=== PATIENT | female | born 1980 | race Caucasian/White ===

== ENCOUNTER 2019-12-22 17:41 | Emergency (ER) | payer BC, SELFPAY ==
[2019-12-22 17:48] VITALS: BP 159/93; PULSE 106; RESP 15; TEMP 36.6; O2SAT 99
--- NOTE | 2019-12-22 18:00 | DI.CT_ITS ---
EXAM: CT ABDOMEN PELVIS WO CLINICAL HISTORY: Flank pain, left. TECHNIQUE: Imaging Protocol: Axial computed tomography images with coronal and sagittal reformatted images were created and reviewed. Noncontrast COMPARISON: No exams were available for comparison FINDINGS: ABDOMEN: Lung Bases: Normal where visualized. Liver: Normal density. No measurable mass. Gallbladder and biliary tract: No radiodense calculus or dilation. Pancreas: Normal density, no abnormal calcifications or inflammatory process. Spleen: Normal. Kidneys: Normal size, contour and axis. No radiodense stones or obstructive uropathy. No masses seen. Adrenal glands: No masses seen. Lymph nodes: Within normal limits. Abdominal Aorta: Abdominal portion non-dilated. There is calcification in the iliac and femoral arter ies as well as splenic artery. PELVIS: Bladder: The bladder is moderately distended. No wall thickening, mass or stone.. Bowel: There is a large quantity of stool seen in the right side of the colon. The more distal porti ons of the colon are decompressed. There are fecalized loops of distal ileum. No obstruction or bow el wall thickening. Peritoneal cavity: Trace free fluid in the lower pelvis.. No free air. Reproductive organs: Within normal limits. Bones: Mild degenerative disc changes. IMPRESSION: Increased quantity of stool in the right side of the colon. No evidence of urinary tract calculi or hydronephrosis.. RADIATION DOSE DELIVERED: Total DLP DATA REPOSITORY: All CT scans at this facility are submitted to the National Radiology Data Registry (NRDR) Dose Index Registry (DIR) with the [employer] ([employer]). RADIATION OPTIMIZATION: All CT scans at this facility use at least one of these dose optimization te chniques: automated exposure control; mA and/or kV adjustment per patient size (includes targeted exa ms where dose is matched to clinical indication); or iterative reconstruction.
[2019-12-22 18:10] LABS: Bilirubin Negative (Negative); Blood Negative (Negative); Clarity Clear (Clear); Glucose Negative (Negative); Ketones Trace mg/dL (Negative); Leukocyte Esterase Negative (Negative); Nitrite Negative (Negative); Specific Gravity <= 1.005 (1.005-1.025); Urobilinogen 0.2 EU/dL (Up TO 0.2); pH 6.5 (5-8)
[2019-12-22 18:34] LABS: Abs Immature Grans 0.01 k/cumm (0.0-0.09); Absolute Basophil Count 0.01 k/cumm (0.0-0.2); Absolute Eosinophil Count 0.05 k/cumm (0.0-0.7); Absolute Lymphocyte Count 1.66 k/cumm (1.2-3.4); Absolute Monocyte Count 0.52 k/cumm (0.11-0.7); Absolute Neutrophil Count 4.09 k/cumm (1.2-6.7); Basophils % 0.2; Eosinophils % 0.8; HCT 37.7 % (36.0-46.0); HGB 13.3 g/dL (12.0-15.5); Immature Grans % 0.2 %; Lymphocytes % 26.2; Mean Corp. HGB Concentration 35.3 g/dL (32.0-36.0); Mean Corpuscular Hemoglobin 33.8 pg (27.0-33.0); Mean Corpuscular Volume 95.7 fL (80-95); Monocytes % 8.2; Neutrophils % 64.4; Platelet Count 289 x1000/uL (130-400); RBC 3.94 m/cumm (4.00-5.20); White Blood Cell Count 6.34 k/cumm (4.4-10.8)
[2019-12-22] MEDS: Normal Saline 1,000 ML 1000 ML IV (18:49)
[2019-12-22 18:51] LABS: ALT 54 U/L (14-59); AST 39 U/L (15-37); Albumin 4.4 g/dL (3.4-5.0); Alkaline Phosphatase 68 U/L (46-116); BUN 5 mg/dL (7-18); Calcium 8.9 mg/dL (8.5-10.1); Chloride 92 mmol/L (98-107); Glucose 105 mg/dL (74-106); Lipase 80 U/L (73-393); Potassium 3.3 mmol/L (3.5-5.1); Sodium 128 mmol/L (136-145); Total Protein 7.7 g/dL (6.4-8.2)
--- NOTE | 2019-12-22 18:56 | DI.VRAD_ITS ---
PROCEDURE INFORMATION: Exam: CT Abdomen And Pelvis Without Contrast Exam date and time: 12/22/2019 18:12 Age: 38 years old Clinical indication: Other: Left flank pain, frequent urination TECHNIQUE: Imaging protocol: Computed tomography of the abdomen and pelvis without contrast. COMPARISON: No relevant prior studies available. FINDINGS: Liver: No hepatic masses on noncontrast imaging. Small hepatic calcifications compatible with benign granulomata. Gallbladder and bile ducts: No calcified stones. No ductal dilation. Pancreas: No ductal dilation. No masses. Spleen: No splenomegaly or focal lesions. Adrenals: No mass. Kidneys and ureters: No nephrolithiasis or collecting system obstruction. Stomach and bowel: No obstruction. No mucosal thickening. Appendix: No evidence of appendicitis. Intraperitoneal space: Small cul-de-sac free fluid within physiologic limits. Vasculature: Atherosclerosis. No aortic aneurysm. Lymph nodes: No significantly enlarged lymph nodes. Bladder: The urinary bladder is distended. No significant wall thickening in the urinary bladder. Reproductive: Unremarkable as visualized. Bones/joints: Unremarkable. No acute fracture. Soft tissues: No suspcious lesions. IMPRESSION: 1. No acute findings. 2. No nephrolithiasis or collecting system obstruction. 3. Distended urinary bladder without evidence of cystitis. Dictated and Authenticated by: Zonia Soriano MD. Ordering:EMILY Wick MD
--- NOTE | 2019-12-22 19:03 | NUR.NOTE ---
Pt reports several days of left flank pain, described as burning. Pain in pelvis before urinating. Denies fevers, N/V. No known injury to back. Took aleve this am. NS infusing through #20 LFA.
--- NOTE | 2019-12-22 19:11 | W.ED.GENAD ---
Discharge Plan Disposition Patient Disposition: HOME Condition: Stable Discharge Details Chief Complaint: FlankPain Clinical Impression: Gastritis, Back pain Primary Care Provider: None,None ED Provider: Shamika Young Home Meds and New Rx's Prescriptions: New pantoprazole [Protonix] 40 mg tablet,delayed release (DR/EC) 40 mg PO DAILY Qty: 7 RF: 0 sucralfate [Carafate] 1 gram tablet 1 gm PO BID Qty: 28 RF: 0 Discontinued Prilosec OTC 20 mg Tablet,Delayed Release (Dr/Ec) 20 mg PO DAILY RF: 0 No Action Tresiba U-100 Insulin 100 unit/mL Solution 30 unit SUBCUT DAILY RF: 0 insulin aspart U-100 [Novolog U-100 Insulin aspart] 100 unit/mL Solution See Rx Instructions .ROUTE .COMPLEX RF: 0 Discharge Instructions Instructions: Gastritis (ED), Back Pain (ED) Additional Instructions: Hold Prilosec for 1 week while taking Protonix. If significantly improved symptoms while taking Protonix talk to PCP regarding a long-term prescription. Use Carafate up to 4 times a day as discussed for symptomatic relief. Urine culture pending. CT reassuring as discussed. Increase salty foods for the next few days due to low sodium as discussed. Recheck sodium with your primary care doctor in follow-up. Return to the emergency room for any worsening, concerns or alarming symptoms sooner if needed Discharge Data Discharge Date/Time-TO BE ENTERED AT DEPARTURE: 12/22/19 20:40 Medical Decision Making This is a 38-year-old patient presenting to the emergency room for complaints of left flank pain. Patient ports left flank pain which began 4 days ago has been worsening since. Is described as constant although occasionally has a spastic component. Patient denies fever or chills associated. Patient is diabetic and reports blood sugars have been approximately 190 the last few days. Patient denies abdominal pain, nausea or vomiting. Patient does report mild suprapubic pressure prior to urination. Patient is urinating without difficulty and frequently. Patient denies hematuria or dysuria associated. Patient denies chest pain, difficulty breathing shortness of breath or wheezing. No recent upper respiratory symptoms. Patient does report 2 months ago she was diagnosed with reflux after experiencing substernal and epigastric chest discomfort. Patient was treated with Prilosec for the last few months and a course of antibiotics. Patient reports that she does still have occasional episodes of reflux. Does report eating and drink without difficulty. Patient does report decrease in bowel movements in the last few days that she has been pushing fluids predominantly. History of UTI several years ago this was not typical of her presentation. No history of kidney stone. Denies any injury or trauma prior to onset of pain in the last 4 days. Patient appears nontoxic. Patient's vital signs reviewed. Patient has clear breath sounds, easy and unlabored breathing. No significant CVA tenderness although patient reports she is aware of palpating the left flank. Patient has benign abdominal exam. No rebound, peritoneal signs. Patient does appear well-hydrated. Plan to check urinalysis as well as CT of patient's flank given her complaints of constant worsening pain over the last 4 days for concern of kidney stone or hydro-. Although patient appears nontoxic will check urinalysis and baseline labs. Patient agrees this plan of care. Will provide normal saline 1 L of fluid. Patient's labs reveal no leukocytosis. Patient does have very mild hypo-neutropenia. Patient has been mild decrease in potassium at 3.3. Kidney function normal. No significant LFT abnormalities. Bilirubin normal. Lipase normal. Patient's urinalysis unremarkable for identified infection this evening. We will plan to check urine culture. Patient CT scan reveals no acute findings. No nephrolithiasis or collecting system obstruction. Mild distention of urinary bladder without evidence of cystitis which I attribute to patient's hydration over the last 2 days in addition to the IV fluid received in the emergency room. Patient is urinating without difficulty. Incidental note of a small hepatic calcification compatible with benign granulomata. This was discussed with the patient. Patient had mild persistent pain, trial of GI cocktail was relieving of her back pain. Possibly her pain is related to gastritis and recent reflux diagnosis. After discussion with the patient will plan to hold her omeprazole for 1 week and replaced with Protonix as well as Carafate. Will place patient on care worker list for follow-up with PCP locally. Patient agrees with this plan of care. Discussed hyponatremia. Patient did receive normal saline. We did discuss repeating BMP however patient declines and would prefer to increase salt in her diet and have follow-up with local PCP for repeat lab testing. Possibly patient's hyponatremia is related to her diabetic medications or diet. Patient reports her understanding. At this time we will plan to discharge this patient. She is feeling improved. She agrees with this plan of care. Patient's vital signs repeated and improved. The patient was stable and requested discharge. Prior to discharge, my usual and customary return precautions were reviewed with the patient - this included follow-up instructions and reasons to return to the Emergency Department if conditions worsens, does not improve as expected, or other new concerns arise. HPI General Date/Time Provider Initiated Documentation: 12/22/19 17:53. HPI Narrative: This is a 38-year-old patient presenting to the emergency room for onset of 4 days of flank pain. Patient reports left-sided flank pain described as a burning. Patient reports pain is constant. Patient reports pain is somewhat improved when standing. Patient reports occasional pulsatile spastic type characteristic of the pain. Denies injury or trauma. Reports the pain is 5 out of 10 at this time. Patient reports pain does seem as if it is been worsening over the last 4 days. Patient reports lower abdominal pressure. Urgency and frequency of urination. Patient did increase her fluid intake in attempts to flush kidneys. Patient denies dysuria or hematuria. Patient denies fevers or chills. Patient does report 2 months ago she was diagnosed with reflux due to epigastric and substernal discomfort. Patient has been taking omeprazole. Patient did report an episode of reflux or yesterday despite using her omeprazole. Patient denies dizziness or headache. Denies any cough, difficulty breathing or shortness of breath or wheezing. Patient reports no substantial bowel movements in the last few days as she has been pushing mostly fluid. Denies abdominal pain. No other concerns complaints. Patient is a type I diabetic, blood sugars have been approximately 190 in the mornings. Related Data Home Medications Medication Instructions Recorded Confirmed insulin aspart U-100 [Novolog See Rx Instructions .ROUTE .COMPLEX 12/22/19 12/22/19 U-100 Insulin aspart] insulin degludec [Tresiba U-100 30 unit SUBCUT DAILY 12/22/19 12/22/19 Insulin] pantoprazole [Protonix] 40 mg PO DAILY #7 tab 12/22/19 sucralfate [Carafate] 1 gm PO BID #28 tab 12/22/19 Previous Rx's Medication Instructions Recorded pantoprazole [Protonix] 40 mg PO DAILY #7 tab 12/22/19 sucralfate [Carafate] 1 gm PO BID #28 tab 12/22/19 Allergies Allergy/AdvReac Type Severity Reaction Status Date / Time amoxicillin Allergy Unverified 12/22/19 17:54 General Stated Complaint: FlankPain SHELLEY: 3 Review of Systems All systems reviewed & are unremarkable except as noted in HPI and below Constitutional Constitutional: Denies chills, Denies fatigue, Denies fever(s), Denies headache(s) and Denies malaise ENT Ears, Nose, Mouth, and Throat: Denies headache(s) Cardiovascular Cardiovascular: Denies chest pain, Denies leg edema, Denies lightheadedness, Denies radiating jaw, neck or arm pain and Denies dyspnea Respiratory Respiratory: Denies cough, Denies dyspnea and Denies wheezing Gastrointestinal Gastrointestinal: Denies abdominal pain, Reports bloating, Reports heartburn, Denies diarrhea, Denies nausea and Denies vomiting Genitourinary Genitourinary: Denies abnormal vaginal bleeding, Denies hematuria, Denies difficulty voiding, Denies dysuria and Reports urinary urgency Musculoskeletal Musculoskeletal: Reports back pain Neurologic Neurologic: Denies headache(s) Endocrine Endocrine: Denies fatigue Allergic/Immunologic Allergic/Immunologic: Denies wheezing [facility] Social History Smoking/Tobacco Use Status: Former Tobacco Use Alcohol Intake: current Alcohol Intake frequency: holidays/special occasions only Substance use type: does not use Do you feel safe at home: Yes Do you feel safe in your relationship?: Yes Exam Narrative Exam Narrative: CONST: Healthy appearing patient, in no acute distress. Well hydrated. Alert and oriented. EYES: General normal appearance. Alignment normal. Eyelids normal. Conjunctiva normal. Sclera normal. PERRL. NECK: Normal visual inspection. FROM. No lymphadenopathy. Trachea midline. No Midline tenderness. CHEST: Normal insepection of the chest. RESP: Normal respiratory effort. Speaking full sentences. No cough. No wheezing. No retractions. Clear to auscaltation. Breath sound equal and present bilaterally. CARDIO: No JVD. Normal PMI. Regular Rate. Regular Rhythm. Normal peripheral pulses. GI: Normal inspection of abdomen. No distension. Soft. Nontender. Bowel sounds present in all 4 quadrants. No rebound. No gaurding. MUSCULOSKELETAL: Normal Gait. FROM of all extremities. Distal neurovascularly intact. Sensation intact distally. Back: No CVA tenderness noted bilaterally SKIN: Normal. Dry. No rashes. NEURO: Alert and awake. Speech clear. PSYCH: Normal affect. Cooperative. Course Vital Signs Vital signs: Vital Signs Temperature 36.6 C 12/22/19 17:48 Pulse 106 H 12/22/19 17:48 Respiratory Rate 15 12/22/19 17:48 Blood Pressure 159/93 H 12/22/19 17:48 Pulse Oximetry 99 12/22/19 17:48 Temperature 36.6 C 12/22/19 17:48 Temperature Source Tympanic 12/22/19 17:48 Pulse 106 H 12/22/19 17:48 Respiratory Rate 15 12/22/19 17:48 Respiratory Effort Non-Labored 12/22/19 17:53 Blood Pressure 159/93 H 12/22/19 17:48 Blood Pressure Position Sitting 12/22/19 17:48 Pulse Oximetry 99 12/22/19 17:48 Oxygen Delivery Method Room Air 12/22/19 17:48 Oxygen Flow Rate 0 12/22/19 17:48 Pain Level 6 12/22/19 19:03 Lab/Test Results Lab/Test Results: 12/22/19 17:49 Urine - Voided Urine Culture - Pending Laboratory Tests Range/Units 12/22/19 12/22/19 12/22/19 17:49 18:25 18:25 WBC (4.4-10.8) k/cumm 6.34 RBC (4.00-5.20) m/cumm 3.94 L Hgb (12.0-15.5) g/dL 13.3 Hct (36.0-46.0) % 37.7 MCV (80-95) fL 95.7 H MCH (27.0-33.0) pg 33.8 H MCHC (32.0-36.0) g/dL 35.3 RDW (11.7-14.6) % 11.0 L Plt Count (130-400) x1000/uL 289 MPV (8.0-11.0) fL 10.0 Immature Gran % % 0.2 Neutrophils % 64.4 Lymphocytes % 26.2 Monocytes % 8.2 Eosinophils % 0.8 Basophils % 0.2 Absolute Neutrophils (1.2-6.7) k/cumm 4.09 Absolute Lymphocytes (1.2-3.4) k/cumm 1.66 Absolute Monocytes (0.11-0.7) k/cumm 0.52 Absolute Eosinophils (0.0-0.7) k/cumm 0.05 Absolute Basophils (0.0-0.2) k/cumm 0.01 Sodium (136-145) mmol/L 128 L Potassium (3.5-5.1) mmol/L 3.3 L Chloride (98-107) mmol/L 92 L Carbon Dioxide (21.0-32.0) mmol/L 24.0 Anion Gap (3-11) mmol/L 12.0 H BUN (7-18) mg/dL 5 L Creatinine (0.55-1.02) mg/dL 0.80 Estimated GFR/1.73 m2 (mL/min/1.73m2) >= 60.00 Glucose (74-106) mg/dL 105 Calcium (8.5-10.1) mg/dL 8.9 Total Bilirubin (0.2-1.0) mg/dL 1.0 AST (15-37) U/L 39 H ALT (14-59) U/L 54 Alkaline Phosphatase (46-116) U/L 68 Total Protein (6.4-8.2) g/dL 7.7 Albumin (3.4-5.0) g/dL 4.4 Lipase (73-393) U/L 80 Urine Color (Yellow) Straw Urine Clarity (Clear) Clear Urine pH (5-8) 6.5 Ur Specific [place] (1.005-1.025) <= 1.005 Urine Protein (Negative) mg/dL Negative Urine Ketones (Negative) mg/dL Trace H Urine Blood (Negative) Negative Urine Nitrite (Negative) Negative Urine Bilirubin (Negative) Negative Urine Urobilinogen (Up TO 0.2) EU/dL 0.2 Ur Leukocyte Esterase (Negative) Negative Urine Glucose (Negative) mg/dL Negative POC- Test(urine) Negative
--- NOTE | 2019-12-22 20:13 | NUR.NOTE ---
Nursing Note:COPY SENT TO [id number] FOR EST PCP
[2019-12-22 20:28] VITALS: BP 149/87; PULSE 87; RESP 16; TEMP 37; O2SAT 99
--- NOTE | 2019-12-23 10:29 | CMACTNOTE_ITS ---
- If Service Date Differs Date of service: 12/23/19 Time of Service: 10:29 Care Management Activity Note At the request of ED provider, CM coordinates referral to [facility], teledoc, to establish care with a PCP.
== END 2019-12-22 20:40 | disposition home or self-care (01) ==
PROVIDERS: Emergency Provider Physician Assistant
DX: K29.00 Acute gastritis without bleeding (principal); M54.5 Low back pain; K21.9 Gastro-esophageal reflux disease without esophagitis; E10.9 Type 1 diabetes mellitus without complications; E87.1 Hypo-osmolality and hyponatremia
CPT/HCPCS: 36415; 36416; 80053; 81025; 82962; 83690; 96360; 96361; 99284; 74176; 81003; 85025; 87086

== ENCOUNTER 2020-07-02 15:35 | Emergency (ER) | payer BC, SELFPAY ==
[2020-07-02] VITALS (36 sets, daily range): BP systolic 113–156; BP diastolic 74–98; PULSE 78–105; RESP 12–27; TEMP 36.7; O2SAT 98–100
--- NOTE | 2020-07-02 15:30 | RT.EKG_ITS ---
APPROVED REPORT Exam: Resting ECG Patient Location: E HR:90 bpm ECG Measurements Heart Rate 90 AXIS ID 129 P 42 QRSd 77 QRS 24 QT 356 T 33 QTc 436 Conclusion Sinus rhythm...normal P axis, V-rate 60- 99 Physician: Rate 90, intervals normal, sinus rhythm, no significant ST elevations or depressions, no e vidence of dysrhythmia, no evidence of delta wave, epsilon wave, Brugada syndrome, or other significa nt abnormality. No signs of right heart strain.
--- NOTE | 2020-07-02 15:45 | DI.RAD_ITS ---
EXAM: XR PORTABLE CHEST AP CLINICAL HISTORY: central chest pain TECHNIQUE: 2D digital imaging was performed. COMPARISON: No exams were available for comparison FINDINGS: MEDIASTINUM: Normal. HEART: Normal. PULMONARY VASCULATURE: Normal. LUNGS: Clear. PLEURAL SPACE: No pleural effusion or pneumothorax. BONE:Within normal limits for the patient's age. OTHER FINDINGS:Normal. IMPRESSION: No acute pulmonary findings. DATA REPOSITORY: RADIATION DOSE DELIVERED:
--- NOTE | 2020-07-02 15:51 | W.ED.GENAD ---
Discharge Plan Disposition Patient Disposition: HOME Condition: Good Discharge Details Clinical Impression: Heart palpitations, Chest heaviness, Dehydration Primary Care Provider: None,None ED Provider: Dennis Toledo Home Meds and New Rx's Prescriptions: Continued Tresiba U-100 Insulin 100 unit/mL Solution 30 unit SUBCUT DAILY RF: 0 insulin aspart U-100 [Novolog U-100 Insulin aspart] 100 unit/mL Solution See Rx Instructions .ROUTE .COMPLEX RF: 0 omeprazole magnesium [Prilosec OTC] 20 mg Tablet,Delayed Release (Dr/Ec) 20 mg PO DAILY RF: 0 Discharge Instructions Instructions: Heart Palpitations (ED) Additional Instructions: At this time your cardiac work-up is returned unremarkable and reassuring. Your labs suggest no evidence of blood clot heart attack or other significant abnormality. There may be a component of dehydration that may have caused your symptoms. Your thyroid function is normal. Please make sure to drink plenty of fluids at home. Please follow-up closely with your primary care provider for further and continued evaluation. If you notice any worsening of your symptoms, or any new symptoms such as vomiting, diarrhea, fever, chills, shortness of breath, chest pain, numbness, weakness, or fainting , please return immediately to the emergency department for reevaluation. Please follow up with your primary care provider as soon as possible for reassessment and reevaluation. As always, it was a pleasure participating in your medical care today. Referrals: Tracee Collins RN [Emergency Nurse] - Medical Decision Making 39-year-old female with a past medical history of type 1 insulin-dependent diabetes, and mild gastritis presents today for symptoms of palpitations, mild chest pain, left arm tightness, and left arm shooting pain. Patient states that she had no symptoms until she woke up this morning, patient states when she awoke this morning she felt like her heart was beating out of her chest. She states that the symptoms continued throughout the day. She was not short of breath when walking or performing activities. There does not appear to be any particular aggravating or relieving symptoms. Symptoms are unchanged by leaning forward or laying back. In addition to the palpitations and mild chest tightness she admits to left arm tightness and shooting left jaw pain. She denies any tearing or ripping sensation. She denies any pleuritic chest pain. She admits to her arm feeling slightly tingly all week ago but none of that sensation now. Denies PE risk factors such as recent long car rides, immobilization, recent surgery, prior history of DVT or PE, family history of PE or DVT, morbid obesity, exogenous estrogen and smoking, hemoptysis, history of cancer. She denies any other illicit drug use. No major prior surgeries. No history of heart disease. She has not had any caffeine the past week. Physical exam is unremarkable, no pulse deficit, vital signs aside from mild tachycardia show no signs of hypoxemia, or significant tachypnea. Neurologic exam is normal. Patient has no concerning red flags for PE, she is not on estrogen or control. Differential is broad to include atypical DKA, dehydration, PE, less likely ACS. We will gently rehydrate, get a laboratory work-up, chest x-ray, monitor closely and reassess. 8P.m. Laboratory work-up is returned, notably unremarkable, no significant electrolyte VBG no other abnormalities to speak of. proBNP is normal, troponin normal, no suggestion of heart strain. TSH normal, urinalysis negative for evidence of infection. Urine drug screen negative, influenza negative. D-dimer is normal. Symptoms inconsistent with DKA. Chest x-ray unremarkable, after 2 days of normal saline the patient is well hydrated and her heart rate is notably normalized. Patient feels well, all previous symptoms have completely resolved. Delta troponin and repeat EKG are normal, no dysrhythmia tachycardia or evidence of STEMI. Symptoms at this time are inconsistent with PE, ACS, or significant metabolic abnormality. Symptoms are inconsistent with pheochromocytoma at this time. With resolution of her symptoms, normal vital signs, and an unremarkable work-up I feel that the patient is safe for discharge clinically at this time. I have extensively reviewed the treatment plan and discharge instructions with the patient. I have addressed all patient concerns at this time. The patient was made aware of what symptoms to monitor for that would warrant a return to the emergency department. Discussed the plan with the patient, they demonstrate verbal understanding and agreement with our assessment and plan at this time. EKG 15: 51 Rate 90, intervals normal, sinus rhythm, no significant ST elevations or depressions, no evidence of dysrhythmia, no evidence of delta wave, epsilon wave, Brugada syndrome, or other significant abnormality. No signs of right heart strain. FINDINGS: Lungs: Unremarkable. No consolidation. Pleural space: Unremarkable. No pleural effusion. No pneumothorax. Heart/Mediastinum: Unremarkable. No cardiomegaly. Bones/joints: Unremarkable. IMPRESSION: No acute findings. Thank you for allowing us to participate in the care of your patient. Dictated and Authenticated by: Colin Mueller MD 07/02/2020 5:06 PM Eastern Time ([place] & [place]) HPI General Date/Time Provider Initiated Documentation: 07/02/20 15:37. HPI Narrative: 39-year-old female with a past medical history of type 1 insulin-dependent diabetes, and mild gastritis presents today for symptoms of palpitations, mild chest pain, left arm tightness, and left arm shooting pain. Patient states that she had no symptoms until she woke up this morning, patient states when she awoke this morning she felt like her heart was beating out of her chest. She states that the symptoms continued throughout the day. She was not short of breath when walking or performing activities. There does not appear to be any particular aggravating or relieving symptoms. Symptoms are unchanged by leaning forward or laying back. In addition to the palpitations and mild chest tightness she admits to left arm tightness and shooting left jaw pain. She denies any tearing or ripping sensation. She denies any pleuritic chest pain. She admits to her arm feeling slightly tingly all week ago but none of that sensation now. Denies PE risk factors such as recent long car rides, immobilization, recent surgery, prior history of DVT or PE, family history of PE or DVT, morbid obesity, exogenous estrogen and smoking, hemoptysis, history of cancer. She denies any other illicit drug use. No major prior surgeries. No history of heart disease. She has not had any caffeine the past week. Related Data Home Medications Medication Instructions Recorded Confirmed Tresiba U-100 Insulin 30 unit SUBCUT DAILY 12/22/19 07/02/20 insulin aspart U-100 [Novolog See Rx Instructions .ROUTE .COMPLEX 12/22/19 07/02/20 U-100 Insulin aspart] omeprazole magnesium [Prilosec OTC] 20 mg PO DAILY 07/02/20 07/02/20 Allergies Allergy/AdvReac Type Severity Reaction Status Date / Time amoxicillin Allergy Unverified 11/16/20 16:30 General SHELLEY: 3 Review of Systems All systems reviewed & are unremarkable except as noted in HPI and below [facility] Social History Smoking/Tobacco Use Status: Former Tobacco Use Smoking risk assessment performed?: Yes Alcohol Intake: current Alcohol Intake frequency: holidays/special occasions only Drug use: Never Substance use type: does not use Do you feel safe at home: Yes Do you feel safe in your relationship?: Yes Exam Narrative Exam Narrative: 1.Const: Well-nourished, Well-developed, appearing stated age 2.Eyes: PERRL, no conjunctival injection, and symmetrical lids. 3.ENT: Atraumatic external nose and ears. Slightly dry MM. Neck: Symmetric, trachea midline, No thyromegaly. 4.CVS: +S1/S2, No murmurs or gallops. Peripheral pulses 2+ and equal in all extremities. Brisk capillary refill in all extremities. Radial pulses +2 bilaterally. No deficits of the lower extremities 5.RESP: Unlabored respiratory effort. Clear to auscultation bilaterally. No wheezes rales or rhonchi 6.GI: Soft, Nontender/Nondistended, No hepatosplenomegaly. No guarding or rebound. 7.MSK: Normocephalic/Atraumatic, Extremities w/o deformity or ttp No cyanosis or clubbing, Normal movement of all extremities. No calf tenderness. 8.Skin: Warm, Dry. No rashes or lesions. 9.Neuro: dispensing optician apprentice II-XII grossly intact. Sensation grossly intact, no focal neurologic deficits. No deficits in sensation to the upper extremities 10.Psych: (AAO) x3. Appropriate mood and affect
[2020-07-02] MEDS: Normal Saline 1,000 ML 1000 ML IV ×2 (16:00→18:04)
[2020-07-02 16:25] LABS: BE (Venous) 0 mmol/L (-2-3); HCO3 (Venous) 26 mmol/L (23-28); O2 Sat (Venous) 61 %; TCO2 (Venous) 23 mmol/L (24-29); pCO2 (Venous) 47 mmHg (41-51); pH (Venous) 7.35 (7.31-7.41); pO2 (Venous) 34 mmHg
[2020-07-02 16:32] LABS: Abs Immature Grans 0.01 10^3/uL (0.0-0.06); Absolute Basophil Count 0.04 10^3/uL (0.0-0.2); Absolute Eosinophil Count 0.08 10^3/uL (0.0-0.7); Absolute Lymphocyte Count 1.78 10^3/uL (1.2-3.4); Absolute Monocyte Count 0.58 10^3/uL (0.1-0.8); Absolute Neutrophil Count 3.78 10^3/uL (1.2-6.7); Basophils % 0.6; Eosinophils % 1.3; HCT 38.8 % (36.0-46.0); HGB 13.1 g/dL (11.2-15.7); Immature Grans % 0.2; Lymphocytes % 28.4; MCH 32.3 pg (27.0-33.0); MCHC 33.8 % (32.0-36.0); MCV 95.8 fL (80-95); MPV 10.8 fL (8.0-11.0); Monocytes % 9.3; Neutrophils % 60.2; Nucleated RBC 0 %; Platelet Count 316 10^3/uL (130-400); RBC 4.05 10^6/uL (3.93-5.22); RDW 11.3 % (11.7-14.6); RDW-SD 39.9 fL; WBC 6.27 10^3/uL (4.4-10.8)
[2020-07-02 16:33] LABS: Bilirubin Negative (Negative); Blood Trace-lysed (Negative); Clarity Clear (Clear); Glucose 100 mg/dL (Negative); Ketones Negative (Negative); Leukocyte Esterase Negative (Negative); Nitrite Negative (Negative); Urobilinogen 0.2 EU/dL (Up TO 0.2)
[2020-07-02 16:39] LABS: PTT Activated 25.4 sec (21.0-27.5); Prothrombin Time 10.3 sec (9.3-11.0)
[2020-07-02 16:41] LABS: Magnesium 2.4 mg/dL (1.8-2.4)
[2020-07-02 16:46] LABS: Bacteria Negative HPF (Negative); C & S Indicated? No; Crystals Negative HPF (Negative); Epithelial Cells Few HPF (Negative); Mucus Negative (Negative); RBC 0-2 HPF (0-2); WBC Negative HPF (0-5)
[2020-07-02 16:55] LABS: ALT 26 U/L (14-59); AST 21 U/L (15-37); Albumin 4.3 g/dL (3.4-5.0); Alkaline Phosphatase 60 U/L (46-116); Anion Gap 8.6 mmol/L (3-11); BUN 13 mg/dL (7-18); Bilirubin, Total 0.8 mg/dL (0.2-1.0); CO2 26.4 mmol/L (21.0-32.0); CREATININE 0.93 mg/dL (0.55-1.02); Calcium 8.8 mg/dL (8.5-10.1); Chloride 97 mmol/L (98-107); Glucose 211 mg/dL (74-106); Potassium 3.9 mmol/L (3.5-5.1); Sodium 132 mmol/L (136-145); TSH (W/Ref FT4) 1.75 uIU/mL (0.36-3.74); Total Protein 7.9 g/dL (6.4-8.2)
[2020-07-02 16:56] LABS: D-Dimer 113 ng/mlFEU (<500)
[2020-07-02 17:02] LABS: *AMPHETAMINES SCREEN URINE Negative (Negative); *BARBITURATES SCREEN URINE Negative (Negative); *BENZODIAZEPINES SCREEN URINE Negative (Negative); Cannabinoids THC Negative (Negative); Cocaine Screen,Urine Negative (Negative); METHADONE URINE SCREEN Negative (Negative); OPIATES URINE SCREEN Negative (Negative)
[2020-07-02 17:03] LABS: Troponin I < 0.05 ng/mL (<0.06)
--- NOTE | 2020-07-02 17:06 | DI.VRAD_ITS ---
PROCEDURE INFORMATION: Exam: XR Chest, 1 View Exam date and time: 07/02/2020 4:56 PM Age: 39 years old Clinical indication: Shortness of breath TECHNIQUE: Imaging protocol: XR of the chest Views: 1 view. COMPARISON: No relevant prior studies available. FINDINGS: Lungs: Unremarkable. No consolidation. Pleural space: Unremarkable. No pleural effusion. No pneumothorax. Heart/Mediastinum: Unremarkable. No cardiomegaly. Bones/joints: Unremarkable. IMPRESSION: No acute findings. Dictated and Authenticated by: Colin Mueller MD. Ordering:DHARA Collins MD
[2020-07-02 17:12] LABS: Tricyclic Antidepressants Negative (Negative)
--- NOTE | 2020-07-02 17:15 | RT.EKG_ITS ---
APPROVED REPORT Exam: Resting ECG Patient Location: E HR:82 bpm ECG Measurements Heart Rate 82 AXIS SD 131 P 39 QRSd 79 QRS 11 QT 381 T 1 QTc 445 Conclusion Sinus rhythm...normal P axis, V-rate 60- 99 I have reviewed and interpreted ECG and agree with software generated interpretation. Unchanged, no stemi
[2020-07-02 17:21] LABS: NT-proBNP 19 pg/mL (<300)
[2020-07-02 19:08] LABS: Troponin I < 0.05 ng/mL (<0.06)
[2020-07-05 03:57] LABS: Patient Race White; SARS-CoV-2 RNA Undetected (Undetected); SARS-CoV-2 Specimen Source Nasopharynx
== END 2020-07-02 19:45 | disposition home or self-care (01) ==
PROVIDERS: Emergency Provider Student in an Organized Health Care Education/Training Program
DX: R00.2 Palpitations (principal); E86.0 Dehydration; R07.9 Chest pain, unspecified; R00.0 Tachycardia, unspecified; E10.65 Type 1 diabetes mellitus with hyperglycemia
CPT/HCPCS: 36415; 36416; 80053; 80307; 81025; 82805; 82962; 87040; 87449; 93005; 96360; 96361; 99285; U0003; 71045; 81003; 81015; 83735; 83880; 84443; 84484; 85025; 85379; 85610; 85730; 93010

== ENCOUNTER 2020-09-03 11:55 | Emergency (ER) | payer BC, SELFPAY ==
[2020-09-03 12:01] VITALS: BP 161/92; PULSE 99; RESP 16; TEMP 36.4; O2SAT 100
[2020-09-03 12:12] LABS: Bilirubin Negative (Negative); Blood Negative (Negative); Clarity Clear (Clear); Glucose Negative (Negative); Ketones Negative (Negative); Leukocyte Esterase Negative (Negative); Nitrite Negative (Negative); Specific Gravity 1.015 (1.005-1.025); Urobilinogen 0.2 EU/dL (Up TO 0.2)
--- NOTE | 2020-09-03 12:24 | W.ED.GENAD ---
Discharge Plan Disposition Patient Disposition: HOME Condition: Good Discharge Details Clinical Impression: Ovarian cyst Primary Care Provider: Juan Silva ED Provider: Maryann Sibley Home Meds and New Rx's Prescriptions: New sucralfate [Carafate] 1 gram tablet 1 g PO BID Qty: 60 RF: 0 No Action Humulin R Regular U-100 Insuln 100 unit/mL Solution RF: 0 Humulin N NPH U-100 Insulin 100 unit/mL Cartridge 30 unit SUBCUT DAILY RF: 0 omeprazole magnesium [Prilosec OTC] 20 mg Tablet,Delayed Release (Dr/Ec) 20 mg PO DAILY RF: 0 Discharge Instructions Instructions: Ovarian Cyst (ED), Diet for Stomach Ulcers and Gastritis (ED) Additional Instructions: please follow-up with stonecutter hand for repeat ultrasound in 2-3 cycles please follow-up regarding ct results Take ibuprofen before milligrams every 8 hours with food and Tylenol 650 mg every 5-6 hours as needed for breakthrough pain You may try to take the Carafate to help with your symptoms, continue taking your Prilosec Follow-up with your doctor next 48 to 72 hours for reevaluation return earlier should you have new or worsening complaints Medical Decision Making Patient appears well, she is alert, oriented, positional capacity Her diagnostic lab abnormalities include elevation in glucose, 152 Sodium 134 Chest x-ray within normal limits Patient had an ovarian cyst in the left adnexal region with some free fluid, she may have hemorrhagic She states her menses began 2 days ago There is no clinical evidence of torsion Her symptoms have been present for over a week Lipase negative, suspicion for continuation There is low risk for sexually transmitted disease and patient's pain is predominantly axial in the CVA region She is made aware regarding better atherosclerosis on her CT scan and need for follow-up She will need repeat ultrasound imaging within the neck few cycles 40 mg all to return to me worsening complaints of discharge with stable vital Differential Diagnosis Differential Diagnosis: Ovarian cyst, pancreatitis, nephrolithiasis, pyelonephritis Medical Records Medical records reviewed: Yes I reviewed the patient's medical records. Lab Data Lab results reviewed: Yes I reviewed the patient's lab results. ECG Data Attestation: I personally reviewed and interpreted this ECG (s) as follows: HPI 39-year-old female presents with left flank pain persistently for the past 9 days. She states that pain started around 810 and gradually and has been worsening. Pain is exacerbated in supine and sitting position. She denies any chest pain or shortness of breath. She denies any cough pleuritic pain associated. She denies radiation of pain to the anterior portion of her chest. She denies fever or chills. She denies prior history of similar symptoms in the past. She denies history of known early cardiac disease in immediate family members or herself. She does not smoke tobacco, use illicit drugs, or has known history of hypertension or hyperlipidemia. She denies any nausea or vomiting. She denies dizziness or weakness. She describes the pain as a burning sensation. Denies risk of sexually-transmitted disease. Sexually active and monogamous with her denies any vaginal discharge. She denies any exertional component to her symptoms. She denies any hematuria or dysuria. She denies any chance of . She did drink a significant amount of alcohol at the beginning of the month associated with holidays. Denies any additional complaints at this time. General Date/Time Provider Initiated Documentation: 09/03/20 12:03. Related Data Home Medications Medication Instructions Recorded Confirmed insulin NPH isoph U-100 human 30 unit SUBCUT DAILY 09/03/20 09/03/20 [Humulin N NPH U-100 Insulin] insulin regular human [Humulin R 09/03/20 Regular U-100 Insuln] omeprazole magnesium [Prilosec OTC] 20 mg PO DAILY 09/03/20 09/03/20 sucralfate [Carafate] 1 g PO BID #60 tab 09/03/20 Previous Rx's Medication Instructions Recorded sucralfate [Carafate] 1 g PO BID #60 tab 09/03/20 Allergies Allergy/AdvReac Type Severity Reaction Status Date / Time amoxicillin Allergy Unverified 09/03/20 12:07 General Stated Complaint: FlankPain SHELLEY: 3 Review of Systems Narrative: Review of systems negative x7 aside from where indicated in HPI [facility] Social History Smoking/Tobacco Use Status: Former Tobacco Use Smoking risk assessment performed?: Yes Alcohol Intake: current Alcohol Intake frequency: holidays/special occasions only Drug use: Never Substance use type: does not use Do you feel safe at home: Yes Do you feel safe in your relationship?: Yes Exam Narrative Exam Narrative: Constitutional: Well developed HEENT: No visible signs of trauma, no palpable Tenderness Eyes: Pupils equal round reactive to light and accommodation Neck: Nontender, no visible sign of trauma Musculoskeletal: No lumbar tenderness, no thoracic tenderness, no cervical spine from this, no hip tenderness bilaterally, no left knee tenderness, left ankle tenderness, over lateral malleolus, no papular no obvious deformity, Skin : No discoloration Neuro: Alert, oriented for age Const General: healthy appearing and no acute distress Orientation: oriented x3 HENMT Head: normal to inspection and atraumatic Throat: uvula midline Eyes Conjunctivae: conjunctivae normal Chest Other: No crepitus, intestinal tenderness, no rashes or lesions Resp Effort & Inspection: normal respiratory effort Other: Lungs clear to auscultation bilaterally no reproducible tenderness Cardio Other: Distal pulses intact GI Other: No abdominal bruit or pulsatile mass, no CVA tenderness Skin General skin exam: no rashes or lesions noted Neuro General: patient alert and patient oriented x3 Extrem Other: No calf tenderness or swelling Course Vital Signs Vital signs: Vital Signs Temperature 36.4 C L 09/03/20 12:01 Pulse 99 H 09/03/20 12:01 Respiratory Rate 16 09/03/20 12:01 Blood Pressure 161/92 H 09/03/20 12:01 Pulse Oximetry 100 09/03/20 12:01 Temperature 36.4 C L 09/03/20 12:01 Temperature Source Skin 09/03/20 12:01 Pulse 99 H 09/03/20 12:01 Respiratory Rate 16 09/03/20 12:01 Blood Pressure 161/92 H 09/03/20 12:01 Blood Pressure Position Sitting 09/03/20 12:01 Pulse Oximetry 100 09/03/20 12:01 Oxygen Delivery Method Room Air 09/03/20 12:01 Oxygen Flow Rate 0 09/03/20 12:01 Pain Level 8 09/03/20 12:01 Lab/Test Results Lab/Test Results: Laboratory Tests Range/Units 09/03/20 12:04 Urine Color (Yellow) Yellow Urine Clarity (Clear) Clear Urine pH (5-8) 7.0 Ur Specific [place] (1.005-1.025) 1.015 Urine Protein (Negative) mg/dL Negative Urine Ketones (Negative) mg/dL Negative Urine Blood (Negative) Negative Urine Nitrite (Negative) Negative Urine Bilirubin (Negative) Negative Urine Urobilinogen (Up TO 0.2) EU/dL 0.2 Ur Leukocyte Esterase (Negative) Negative Urine Glucose (Negative) mg/dL Negative
--- NOTE | 2020-09-03 12:30 | RT.EKG_ITS ---
APPROVED REPORT Exam: Resting ECG Patient Location: E HR:88 bpm ECG Measurements Heart Rate 88 AXIS RI 120 P 36 QRSd 78 QRS 20 QT 352 T 27 QTc 426 Conclusion Sinus rhythm...normal P axis, V-rate 60- 99 no STEMI, non-diagnostic EKG I have reviewed and interpreted ECG and agree with software generated interpretation.
[2020-09-03 13:00] LABS: Abs Immature Grans 0.01 10^3/uL (0.0-0.06); Absolute Basophil Count 0.05 10^3/uL (0.0-0.2); Absolute Eosinophil Count 0.03 10^3/uL (0.0-0.7); Absolute Lymphocyte Count 1.18 10^3/uL (1.2-3.4); Absolute Monocyte Count 0.56 10^3/uL (0.1-0.8); Absolute Neutrophil Count 5.44 10^3/uL (1.2-6.7); Basophils % 0.7; Eosinophils % 0.4; HCT 37.7 % (36.0-46.0); HGB 12.4 g/dL (11.2-15.7); Immature Grans % 0.1; Lymphocytes % 16.2; MCH 31.6 pg (27.0-33.0); MCHC 32.9 % (32.0-36.0); MCV 96.2 fL (80-95); MPV 10.8 fL (8.0-11.0); Monocytes % 7.7; Neutrophils % 74.9; Nucleated RBC 0 %; Platelet Count 318 10^3/uL (130-400); RBC 3.92 10^6/uL (3.93-5.22); RDW 12.3 % (11.7-14.6); RDW-SD 43.4 fL; WBC 7.27 10^3/uL (4.4-10.8)
[2020-09-03 13:02] LABS: ALT 21 U/L (14-59); AST 15 U/L (15-37); Albumin 4.1 g/dL (3.4-5.0); Alkaline Phosphatase 60 U/L (46-116); Anion Gap 9.4 mmol/L (3-11); BUN 5 mg/dL (7-18); Bilirubin, Total 0.8 mg/dL (0.2-1.0); CO2 25.6 mmol/L (21.0-32.0); CREATININE 0.84 mg/dL (0.55-1.02); Calcium 9.1 mg/dL (8.5-10.1); Chloride 99 mmol/L (98-107); Glucose 152 mg/dL (74-106); Lipase 89 U/L (73-393); Potassium 3.7 mmol/L (3.5-5.1); Sodium 134 mmol/L (136-145); Total Protein 7.8 g/dL (6.4-8.2)
[2020-09-03 13:04] LABS: Troponin I < 0.05 ng/mL (<0.06)
--- NOTE | 2020-09-03 13:15 | DI.CT_ITS ---
EXAM: CT ABDOMEN PELVIS W CLINICAL HISTORY: left flank pain, hx of diabetes TECHNIQUE: Imaging Protocol: Axial computed tomography images with coronal and sagittal reformatted images were created and reviewed CONTRAST MATERIAL: Intravenous: Omnipaque 350 Contrast volume:100 mL Oral: No COMPARISON: CT CT ABDOMEN PELVIS WO from 12/22/2019 FINDINGS: ABDOMEN: Lung Bases: Normal where visualized. Liver: Normal density. No measurable mass. Portal, Superior Mesenteric, and Splenic Veins: Unremarkable. Gallbladder and Biliary Tract: No radiodense calculus or dilation. Pancreas: Normal density, no abnormal calcifications or inflammatory process. Spleen: Normal. Adrenals: No masses seen. Kidneys: Normal size, contour and axis. No radiodense stones or obstructive uropathy. No masses seen. Abdominal Aorta: Abdominal portion non-dilated. Moderate atherosclerosis. Extensive calcification pr edominantly involves the internal and external iliac arteries and femoral arteries bilaterally. Bowel: No obstruction or bowel wall thickening. No evidence of appendicitis. Peritoneal Cavity: Trace amount of free fluid in the cul-de-sac which may be physiologic. No free ai r. Lymph Nodes: Within normal limits. Bones: Degenerative changes. Soft Tissues: Unremarkable. PELVIS: Bladder: Symmetric distention, no gross wall thickening. Reproductive Organs: There is a dominant 2.7 cm left ovarian cyst. Reproductive organs are otherwise grossly unremarkable. Lymph Nodes: Within normal limits. Bones: Degenerative changes. IMPRESSION: 1. No evidence of nephrolithiasis or hydronephrosis. 2. 2.7 cm left ovarian cyst. Small amount of free fluid in the pelvis. These findings are likely ph ysiologic. 3. Extensive atherosclerosis involving the iliac and femoral arteries bilaterally. RADIATION DOSE DELIVERED: 834.77mGy.cm Total DLP DATA REPOSITORY: All CT scans at this facility are submitted to the National Radiology Data Registry (NRDR) Dose Index Registry (DIR) with the [employer] ([employer]). RADIATION OPTIMIZATION: All CT scans at this facility use at least one of these dose optimization te chniques: automated exposure control; mA and/or kV adjustment per patient size (includes targeted exa ms where dose is matched to clinical indication); or iterative reconstruction.
--- NOTE | 2020-09-03 13:17 | DI.RAD_ITS ---
EXAM: XR PORTABLE CHEST AP CLINICAL HISTORY: left thorax pain TECHNIQUE: 2D digital imaging was performed. COMPARISON: CR,XR XR PORTABLE CHEST AP from 07/02/2020 FINDINGS: MEDIASTINUM: Normal. HEART: Normal. PULMONARY VASCULATURE: Normal. LUNGS: Clear. PLEURAL SPACE: No pleural effusion or pneumothorax. BONE:Within normal limits for the patient's age. OTHER FINDINGS:Normal. IMPRESSION: No acute pulmonary findings. DATA REPOSITORY: RADIATION DOSE DELIVERED:
[2020-09-03] MEDS: Omnipaque 350 MG/ML 100 ML BTL IV (14:08)
[2020-09-03] MEDS: Normal Saline - Diluent 50 ML VIAL IV (14:11)
== END 2020-09-03 15:20 | disposition home or self-care (01) ==
PROVIDERS: Emergency Provider Physician Assistant; PCP Physician Assistant
DX: N83.292 Other ovarian cyst, left side (principal); E11.9 Type 2 diabetes mellitus without complications; Z79.4 Long term (current) use of insulin
CPT/HCPCS: 36415; 80053; 81025; 83690; 93005; 99285; 71045; 74177; 81003; 84484; 85025; 93010; 99284; J3490